=== PATIENT | male | born 1955 | race Caucasian/White ===

== ENCOUNTER 2018-01-03 02:42 | Emergency (ER) | payer OTHER ==
[~2018-01-03] VITALS: Ht 182.9 cm; Wt 92.1 kg
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
--- NOTE | 2018-01-03 03:16 | RADIOLOGY REPORT ---
EXAMINATION: XR PORTABLE CHEST CLINICAL INFORMATION: Dyspnea. COMPARISON: None TECHNIQUE: Portable frontal view of the chest was obtained. 2:52 AM FINDINGS: No significant abnormality is noted involving the heart, lungs, mediastinum, bony thorax or soft tissues. IMPRESSION: Unremarkable examination.
[2018-01-03 03:19] LABS: ABSOLUTE BASOPHIL COUNT 0 /CUMM (0.0-0.2); ABSOLUTE EOSINOPHIL COUNT 0.1 /CUMM (0.0-0.7); ABSOLUTE GRANULOCYTE CT 5.3 /CUMM (1.4-6.5); ABSOLUTE LYMPH COUNT 1.8 /CUMM (1.2-3.4); ABSOLUTE MONOCYTE COUNT 1.6 /CUMM (0.10-0.60); BASOPHIL % 0.4 % (0.0-2.0); EOSINOPHIL % 1.6 % (0-5); GRANULOCYTE % 59.4 % (42.2-75.2); HEMATOCRIT 47.6 % (42-52); MEAN CORPUSCULAR HGB 31.9 PG (27.0-31.0); MEAN CORPUSCULAR HGB CONC 33.7 G/DL (33.0-37.0); MEAN CORPUSCULAR VOLUME 94.5 FL (80.0-94.0); MEAN PLATELET VOLUME 9.1 FL (7.4-10.4); PLATELET COUNT 228 /CUMM (130-400); RBC DISTRIBUTION WIDTH 12.6 % (11.5-14.5); RED BLOOD CELL CT 5.04 /CUMM (4.70-6.10); WHITE BLOOD CELL COUNT 8.9 /CUMM (4.8-10.8)
[2018-01-03] MEDS ORDERED: AUGMENTIN 875-1 EACH PO (04:01)
[2018-01-03] MEDS ORDERED: VENTOLIN HFA18 GM INH (04:01)
[2018-01-03] MEDS ORDERED: PREDNISOLO15 MG/5 M4 PO (04:01)
[2018-01-03 04:12] VITALS: BP 134/86
== END 2018-01-03 04:16 ==
LOC: ERH 02:42
PROVIDERS: Pediatrics
DX: J40 Bronchitis, not specified as acute or chronic (principal); Z87.891 Personal history of nicotine dependence; R50.9 Fever, unspecified; R53.1 Weakness
CPT/HCPCS: 1263; 71045; 87804; 87804-59; 93005; 93010; J3490